=== PATIENT | female | born 1950 | race Two or more races ===

== ENCOUNTER 2022-03-18 07:45 | Inpatient (IN) | payer OTHER ==
[~2022-03-18] VITALS: Ht 157.5 cm; Wt 70.8 kg
[2022-03-24] MEDS ORDERED: ISORDIL10 MG PO (09:00)
[2022-03-24] MEDS ORDERED: COZAAR100 MG PO (09:00)
[2022-03-24] MEDS ORDERED: CARDIZEM30 MG PO (09:01)
[2022-03-24] MEDS ORDERED: LOZOL PO (09:02)
[2022-03-30] MEDS ORDERED: INDAPAMIDE2.5 MG PO (09:38)
== END 2022-03-31 16:18 | DRG 470 ==
LOC: SURH 03-29 05:47 → O/R 03-29 05:47 → SURH 03-29 07:00 → SURG 03-29 13:49 → SURH 03-31 08:19
PROVIDERS: ADMIT Orthopaedic Surgery; ATTEND Orthopaedic Surgery
PROC: 0SRB0JZ Replacement of Left Hip Joint with Synthetic Substitute, Open Approach (ICD-10-PCS; principal; 2022-03-29 12:30)
DX: M16.12 Unilateral primary osteoarthritis, left hip (principal); D62 Acute posthemorrhagic anemia; I10 Essential (primary) hypertension

== ENCOUNTER 2023-10-26 15:56 | Emergency (ER) | payer OTHER ==
[~2023-10-26] VITALS: Ht 157.5 cm; Wt 70.8 kg
[~2023-10-26 15:56] MED LIST: CARDIZEM30 MG PO; COZAAR100 MG PO; INDAPAMIDE2.5 MG PO; ISORDIL10 MG PO; LOZOL PO
[2023-10-26] MEDS ORDERED: CHLORTHALIDONE25 MG PO (16:06)
[2023-10-26] MEDS ORDERED: PROPOFOL 10 MG/1 ML VIAL 50ML IV ONE (18:45)
[2023-10-26] MEDS ORDERED: 0.9 % SODIUM CHLORIDE 1,000 ML IV SCH (19:00)
== END 2023-10-26 20:59 | disposition home or self-care (01) ==
LOC: ER 15:56
DX: T84.021A Dislocation of internal left hip prosthesis, initial encounter (principal); Z96.642 Presence of left artificial hip joint
CPT/HCPCS: 27265; 73501; 96365; 99283; J3490; J7030

== ENCOUNTER 2024-03-27 19:05 | Emergency (ER) | payer OTHER ==
[~2024-03-27] VITALS: Ht 157.5 cm; Wt 69.4 kg
[~2024-03-27 19:05] MED LIST changes: +CHLORTHALIDONE25 MG PO
[2024-03-27] MEDS ORDERED: SERTRALINE HCL50 MG PO (19:15)
[2024-03-27] MEDS ORDERED: PROPOFOL 10,000 MCG/ML VIAL ONE (20:13)
[2024-03-27] MEDS ORDERED: PROPOFOL 10,000 MCG/ML VIAL IV PUSH ONE (20:15)
[2024-03-27] MEDS ORDERED: 0.9 % SODIUM CHLORIDE 1,000 ML IV SCH (20:15)
== END 2024-03-27 21:14 | disposition home or self-care (01) ==
LOC: ER 19:05
DX: S73.005A Unspecified dislocation of left hip, initial encounter (principal); I10 Essential (primary) hypertension

== ENCOUNTER 2024-07-06 02:32 | Emergency (ER) | payer OTHER ==
[~2024-07-06] VITALS: Ht 170.2 cm; Wt 77.1 kg
[~2024-07-06 02:32] MED LIST changes: +SERTRALINE HCL50 MG PO
[2024-07-06] MEDS ORDERED: LORazepam 2 MG/ML VIAL IV STA (05:32)
[2024-07-06] MEDS ORDERED: FLUMAZENIL 1MG/10ML VIAL IV STA (05:33)
[2024-07-06] MEDS ORDERED: MIDAZOLAM HCL/PF 5 MG/ML VIAL IV STA (06:38)
[2024-07-06] MEDS ORDERED: 0.9 % SODIUM CHLORIDE 500 ML IV STA (07:02)
[2024-07-06 08:30] LABS: HEMOGLOBIN 12.1 g/dL (12.0-15.00); MEAN CELL VOLUME 89.1 fL (80.00-100.00); MEAN CORPUSCULAR HEMOGLOBIN 30.9 pg (27.00-32.0); MEAN CORPUSCULAR HGB CONC 34.6 g/dl (32.0-36.0); PLATELET COUNT 212 K/uL (150-450); RED BLOOD COUNT 3.94 M/uL (4.00-6.00); RED CELL DISTRIBUTION WIDTH 12.9 % (11.5-14.5)
[2024-07-06 09:18] LABS: INR 1.08; PARTIAL THROMBOPLASTIN TIME 25.9 SECONDS (22.0-34.0); PROTHROMBIN TIME 11.7 SECONDS (9.0-11.5)
[2024-07-06] MEDS ORDERED: TRAM1TAB98 PO (11:16)
[2024-07-06 11:28] LABS: CREATININE SERUM 0.91 mg/dL (0.55-1.02); GFR 60.1
[2024-07-06 11:30] LABS: POTASSIUM 2.88 mEq/L (3.5-5.1)
[2024-07-06] MEDS ORDERED: PROPOFOL 10 MG/1 ML VIAL 50ML IV ONE (11:30)
[2024-07-06] MEDS ORDERED: POTASSIUM BICARBONATE/CIT AC 25 MEQ TABLET.EFF PO ONE (11:45)
[2024-07-06 15:02] LABS: CALCIUM 9.7 mg/dL (8.5-10.1); CREATININE SERUM 0.76 mg/dL (0.55-1.02); GFR 73.99; POTASSIUM 3.1 mEq/L (3.5-5.1)
== END 2024-07-06 17:03 | disposition home or self-care (01) ==
LOC: ER 02:32
PROVIDERS: General Practice
DX: T84.021A Dislocation of internal left hip prosthesis, initial encounter (principal); I10 Essential (primary) hypertension
CPT/HCPCS: 27257; 36415; 73501; 96365; 96366; 99283; J3490; J7042